=== PATIENT | female | born 1935 | race Caucasian/White ===

== ENCOUNTER 2016-11-01 11:55 | Emergency (ER) | payer OTHER, BC ==
[2016-11-01 12:04] VITALS: BP 166/88; PULSE 70; TEMP 97.9; BMI 29.2
--- NOTE | 2016-11-01 12:08 | PDOC ---
History of Present Illness - General Chief Complaint: Ear Problem Stated Complaint: BLEEDING BEHIND RIGHT EAR Time Seen by Provider: 11/01/16 11:58 History Source: Patient Exam Limitations: No Limitations - History of Present Illness Initial Comments: 11/01/16 12:10 81y F no significant pmhx presents with bleeding behind her R ear. The pt states that about 2 days ago, she notice some bleeding behind her right ear. there is no associated pain, fever/chills. the bleeding is intermittent. the pt does endorse swimming a few times a week, and states she uses a hearing aid behind that ear typically. pt also notes that she has noticed some dry skin around her R ear recently no other rashes, hearing changes, sore throat. Past History - Past Medical History Allergies/Adverse Reactions: Allergies Allergy/AdvReac Type Severity Reaction Status Date / Time Penicillins Allergy Rash Unverified 04/01/15 16:12 Home Medications: Ambulatory Orders Ascorbic Acid [Vitamin C] 500 mg PO DAILY tablet 04/01/15 Gluc HCl/Csa/Collagen/Hyalur A [Glucosamine Chondroitin Cap] 1 each PO DAILY capsule 04/01/15 Vitamin B Complex [Vitamin B-100 Complex] 1 each PO DAILY tablet 04/01/15 Cholecalciferol (Vitamin D3) [Vitamin D3] 1,000 unit PO DAILY capsule 10/01/15 Vitamin E DAILY 10/01/15 Krill/Om3/Dha/Epa/Om6/Lip/Astx [Krill Oil 1,000 Mg Softgel] 1 each PO DAILY capsule 01/16/16 Psyllium Husk [Metamucil] 0.52 gm PO 5 DAILY capsule 04/14/16 Review of Systems - Review of Systems Able to Perform ROS?: Yes Comments:: 11/01/16 12:13 Constitutional - no reported Fever, Chills, weakness, HEENT: +bleeding behind R ear no reported vision changes, sore throat skin - +Dry skin no reported bruising, erythema, rash neurological: no reported headache, numbness, focal weakness, tingling, ataxia, weakness hematologic: no reported anemia, easy bruising, easy bleeding *Physical Exam - Physical Exam Comments: 11/01/16 12:14 GENERAL: The patient is awake, alert, and fully oriented, Nontoxic - in no acute distress. ENT: Normal voice, Moist mucous membranes. dryness around the R auricle, superficial abrasion skin breakdown in the fold of skin behind auricle, no erythema, no discahrge, nontender to palpation, not warm to touch Medical Decision Making - Medical Decision Making 11/01/16 12:15 suspect abrasion/skin breakdown due to dryness + hearing aid use no signs of infection will have pt keep the area clean/ dry and not use her hearing aide in that ear for the next 5 days will have pt fu with dr. pruitt later this week for reevaluation infection sypmtoms were discussed with the patient for which she should return I discussed the physical exam findings, ancillary test results and final diagnoses with the patient. I answered all of the patient's questions. The patient was satisfied with the care received and felt comfortable with the discharge plan and treatment plan. The patient will call their primary care physician within 24 hours to arrange follow-up and will return to the Emergency Department with any new, persistent or worsening symptoms. *DC/Admit/Observation/Transfer Diagnosis at time of Disposition: Ear abrasion Qualifiers: Encounter type: initial encounter Laterality: right Qualified Code(s): S00.411A - Abrasion of right ear, initial encounter - Discharge Dispostion Disposition: HOME Condition at time of disposition: Stable Admit: No - Referrals Referrals: Adalberto Pruitt MD [Primary Care Provider] - - Patient Instructions Printed Discharge Instructions: DI for Abrasion Additional Instructions: keep your ear clean and dry. dab it after showering to keep it dry. avoid using your hearing aide for the next few days to allow the wound to clear. if tehre is pain, redness, swelling, warm to the touch or you have any fever, return for evaluation.
== END 2016-11-01 12:13 | disposition home or self-care (01) ==
LOC: FER 11:55
DX: S00.411A Abrasion of right ear, initial encounter (principal); X58.XXXA Exposure to other specified factors, initial encounter; Y93.9 Activity, unspecified; Y92.9 Unspecified place or not applicable
CPT/HCPCS: 99282-25

== ENCOUNTER 2017-02-06 15:10 | Emergency (ER) | payer OTHER, BC ==
[2017-02-06 15:45] VITALS: BP 152/74; PULSE 70; TEMP 98; BMI 30.1
--- NOTE | 2017-02-06 17:00 | PDOC ---
History of Present Illness <Heidy Delatorre - Last Filed: 02/06/17 16:55> - General History Source: Patient Exam Limitations: No Limitations - History of Present Illness Initial Comments: 02/06/17 17:02 The patient is a 81 year old female with a history of bilateral hearing aids who presents to the ED s/p foreign body in her ear. The patient reports she lost her right hearing aid in her right ear. Patient denies right ear pain and does not feel anything in her right ear. Denies ear discharge. Denies any other symptoms. <Kvng Callahan - Last Filed: 02/06/17 17:03> - General Chief Complaint: Foreign Body (FB) Stated Complaint: HEARING AID PART IN RIGHT EAR Time Seen by Provider: 02/06/17 16:02 Past History - Psycho/Social/Smoking Cessation Hx Anxiety: No Suicidal Ideation: No Smoking History: Never smoked Hx Alcohol Use: No Drug/Substance Use Hx: No Substance Use Type: None <Heidy Delatorre - Last Filed: 02/06/17 16:55> <Kvng Callahan - Last Filed: 02/06/17 17:03> - Past Medical History Allergies/Adverse Reactions: Allergies Allergy/AdvReac Type Severity Reaction Status Date / Time Penicillins Allergy Rash Unverified 04/01/15 16:12 Home Medications: Ambulatory Orders Ascorbic Acid [Vitamin C] 500 mg PO DAILY tablet 04/01/15 Gluc HCl/Csa/Collagen/Hyalur A [Glucosamine Chondroitin Cap] 1 each PO DAILY capsule 04/01/15 Vitamin B Complex [Vitamin B-100 Complex] 1 each PO DAILY tablet 04/01/15 Cholecalciferol (Vitamin D3) [Vitamin D3] 1,000 unit PO DAILY capsule 10/01/15 Vitamin E DAILY 10/01/15 Krill/Om3/Dha/Epa/Om6/Lip/Astx [Krill Oil 1,000 Mg Softgel] 1 each PO DAILY capsule 01/16/16 Psyllium Husk [Metamucil] 0.52 gm PO 5 DAILY capsule 04/14/16 Review of Systems - Review of Systems Able to Perform ROS?: Yes Comments:: 02/06/17 17:02 GENERAL/CONSTITUTIONAL: No fever or chills. No weakness. HEAD, EYES, EARS, NOSE AND THROAT:+ foreign body in right ear. No change in vision. No ear pain or discharge. No sore throat. CARDIOVASCULAR: No chest pain or shortness of breath. RESPIRATORY: No cough, wheezing, or hemoptysis. GASTROINTESTINAL: No nausea, vomiting, diarrhea or constipation. GENITOURINARY: No dysuria, frequency, or change in urination. MUSCULOSKELETAL: No joint or muscle swelling or pain. No neck or back pain. SKIN: No rash NEUROLOGIC: No headache, vertigo, loss of consciousness, or change in strength/ sensation. ENDOCRINE: No increased thirst. No abnormal weight change. HEMATOLOGIC/LYMPHATIC: No anemia, easy bleeding, or history of blood clots. ALLERGIC/IMMUNOLOGIC: No hives or skin allergy. <Kvng Callahan - Last Filed: 02/06/17 17:03> *Physical Exam - Vital Signs Last Vital Signs Temp Pulse Resp BP Pulse Ox 98.0 F 70 16 152/74 98 02/06/17 15:40 02/06/17 15:40 02/06/17 15:40 02/06/17 15:40 02/06/17 15:40 <Heidy Delatorre - Last Filed: 02/06/17 16:55> - Vital Signs Last Vital Signs Temp Pulse Resp BP Pulse Ox 98.0 F 70 16 152/74 98 02/06/17 15:40 02/06/17 15:40 02/06/17 15:40 02/06/17 15:40 02/06/17 15:40 - Physical Exam Comments: 02/06/17 17:03 GENERAL: Awake, alert, and fully oriented, in no acute distress HEAD: No signs of trauma EYES: PERRLA, EOMI, sclera anicteric, conjunctiva clear ENT:+ Right TM is occluded by wax. Auricles normal inspection, hearing grossly normal, nares patent, oropharynx clear without exudates. Moist mucosa NECK: Normal ROM, supple, no lymphadenopathy, JVD, or masses LUNGS: Breath sounds equal, clear to auscultation bilaterally. No wheezes, and no crackles HEART: Regular rate and rhythm, normal S1 and S2, no murmurs, rubs or gallops ABDOMEN: Soft, nontender, normoactive bowel sounds. No guarding, no rebound. No masses EXTREMITIES: Normal range of motion, no edema. No clubbing or cyanosis. No cords, erythema, or tenderness NEUROLOGICAL: Normal speech SKIN: Warm, Dry, normal turgor, no rashes or lesions noted. <Kvng Callahan - Last Filed: 02/06/17 17:03> Medical Decision Making - Medical Decision Making 02/06/17 16:55 81 yo F with h/o no pmhx here wth c/o right ear foreign body. pt thought she had a piece of hearing aid stuck in her ear. now wearing her hearing aid on the left side. no f/c no other complaints. on exam pt with large wax bolus on right ear. canal no erythema. plan irrigate right ear wtih hydrogen peroxide and irrigation. pt unable to tolerate extraction. will dc with cerumenex ear drops. fu ENT <Heidy Delatorre - Last Filed: 02/06/17 16:55> *DC/Admit/Observation/Transfer - Discharge Dispostion Admit: No <Heidy Delatorre - Last Filed: 02/06/17 16:55> - Attestations Scribe Attestion: 02/06/17 17:03 Documentation prepared by Kvng Callahan, acting as medical biller coder for Heidy Delatorre MD <Kvng Callahan - Last Filed: 02/06/17 17:03> Diagnosis at time of Disposition: Excessive cerumen in right ear canal - Discharge Dispostion Condition at time of disposition: Good - Referrals Referrals: Adalberto Pruitt MD [Primary Care Provider] - Chirag Foster MD [Staff Physician] - - Patient Instructions Printed Discharge Instructions: Cerumen Impaction Additional Instructions: use cerumenx ear drops in right ear daily to help soften wax. follow up with ENT doctor, Dr. Cristian vasquez. call to schedule. return for any problems or concerns.
== END 2017-02-06 17:04 | disposition home or self-care (01) ==
LOC: FER 15:10
DX: H61.21 Impacted cerumen, right ear (principal)
CPT/HCPCS: 99281-25

== ENCOUNTER 2018-01-08 19:17 | Emergency (ER) | payer OTHER, BC ==
[2018-01-08 19:34] VITALS: BP 138/70; PULSE 76; TEMP 97.5
--- NOTE | 2018-01-08 21:03 | PDOC ---
History of Present Illness - General History Source: Patient Exam Limitations: No Limitations - History of Present Illness Initial Comments: 01/08/18 21:10 The patient is an 82 year old female with history of dementia who presents to the ED complaining of left calf pain that began this evening. The patient reports she was walking in her garden today when she "twisted" her left calf at the onset of her pain. She denies any fall or head trauma. She now complains of left calf pain that is worse with walking and bearing weight. The patient denies numbness or tingling. She denies peripheral edema. She denies chest pain or shortness of breath. She denies history of PE or DVT. <Latosha Dotson - Last Filed: 01/08/18 21:10> <Jeanie Flores - Last Filed: 01/09/18 01:20> - General Chief Complaint: Pain, Acute Stated Complaint: LEFT CALF PAIN Time Seen by Provider: 01/08/18 19:21 Past History <Latosha Dotson - Last Filed: 01/08/18 21:10> - Past Medical History COPD: No Dementia: Yes Psychiatric Problems: Yes - Suicide/Smoking/Psychosocial Hx Smoking History: Never smoked Hx Alcohol Use: No Drug/Substance Use Hx: No Substance Use Type: None <Jeanie Flores - Last Filed: 01/09/18 01:20> - Past Medical History Allergies/Adverse Reactions: Allergies Allergy/AdvReac Type Severity Reaction Status Date / Time Penicillins Allergy Rash Verified 01/08/18 19:21 Home Medications: Ambulatory Orders Rivastigmine Tartrate [Rivastigmine] 1.5 mg PO BID capsule 04/22/17 Pravastatin Sodium [Pravachol (Nf)] 20 mg PO DAILY 01/08/18 Sertraline HCl [Zoloft -] 50 mg PO HS 01/08/18 Review of Systems - Review of Systems Able to Perform ROS?: Yes Comments:: 01/08/18 21:15 Review of systems is as per HPI and otherwise negative. <Latosha Dotson - Last Filed: 01/08/18 21:10> *Physical Exam - Vital Signs Last Vital Signs Temp Pulse Resp BP Pulse Ox 97.5 F L 76 16 138/70 99 01/08/18 19:18 01/08/18 19:18 01/08/18 19:18 01/08/18 19:18 01/08/18 19:18 - Physical Exam Comments: 01/08/18 21:15 GENERAL: Awake, alert, and fully oriented, in no acute distress HEAD: No signs of trauma EYES: PERRLA, EOMI, sclera anicteric, conjunctiva clear ENT: Auricles normal inspection, hearing grossly normal, nares patent, oropharynx clear without exudates. Moist mucosa NECK: Normal ROM, supple, no lymphadenopathy, JVD, or masses LUNGS: Breath sounds equal, clear to auscultation bilaterally. No wheezes, and no crackles HEART: Regular rate and rhythm, normal S1 and S2, no murmurs, rubs or gallops ABDOMEN: Soft, nontender, normoactive bowel sounds. No guarding, no rebound. No masses EXTREMITIES: LLE: Tenderness to palpation of the posterior lower leg including the gastrocnemius muscle region, no stepoffs palpated in the Achilles' tendon area of insertion. Dorsiflexion and plantarflexion intact, but there is pain with active and passive ROM. Pulses are intact distally. CR < 2s. All other extremities: Normal range of motion, no edema. No clubbing or cyanosis. No cords, erythema, or tenderness NEUROLOGICAL: Cranial nerves II through XII grossly intact. Normal speech, gait deferred. SKIN: Warm, Dry, normal turgor, no rashes or lesions noted. <Latosha Dotson - Last Filed: 01/08/18 21:10> - Vital Signs Last Vital Signs Temp Pulse Resp BP Pulse Ox 97.5 F L 76 16 138/70 99 01/08/18 19:18 01/08/18 19:18 01/08/18 19:18 01/08/18 19:18 01/08/18 19:18 <Jeanie Flores - Last Filed: 01/09/18 01:20> Medical Decision Making - Medical Decision Making Documentation has been prepared under my direction and personally reviewed by me in its entirety. I attest that this documented accurately reflects all work, treatment, procedures and medical decision making performed by me. As noted above, this 82-year-old woman with a history of dementia presents with left lower leg pain that began suddenly as she was taking a walk in the garden. She describes walking and "twisting her leg"; she cannot describe the event more precisely. She may have been walking down a step in the garden according to her , although he did not witness the event. The patient denies falling or impacting any area of her body. Since then, she has had pain with dorsiflexion/plantar flexion of her foot. No previous history of this type of pain in either leg. No history of previous thromboembolic events. Exam as noted Left leg Doppler duplex ultrasound study performed to evaluate for DVT: No evidence of DVT. Patient's history and exam most consistent with Achilles tendinopathy/ tendinitis. No evidence for complete rupture of the Achilles tendon. Left lower leg wrapped using James wrap. Patient and her advised to ice and elevate left leg is much as possible. Her has used Dr. Vargas in the past and referral information was given to them for follow-up within the next few days. Patient uses nonsteroidal anti-inflammatory medications as needed. Toradol 30 mg IM administered; she can continue ibuprofen/naproxen/acetaminophen as needed for pain. <Jeanie Flores - Last Filed: 01/09/18 01:20> *DC/Admit/Observation/Transfer <Latosha Dotson - Last Filed: 01/08/18 21:10> <Jeanie Flores - Last Filed: 01/09/18 01:20> Diagnosis at time of Disposition: Achilles tendinitis of left lower extremity - Discharge Dispostion Disposition: HOME Condition at time of disposition: Stable - Referrals Referrals: Adalberto Pruitt MD [Primary Care Provider] - Twin Rowley MD [Staff Physician] - Call tomorrow - Patient Instructions Printed Discharge Instructions: DI for Achilles Tendinopathy Additional Instructions: Ice to left lower leg/elevation until seen by orthopedist James wrap during the day (remove at night) Ibuprofen 600 mg up to 3 times a day (take with food) Follow-up with Dr. [facility] within the next 2-3 days( call office tomorrow) - Post Discharge Activity
[2018-01-08] MEDS ORDERED: KETOROLAC TROMETHAMINE 60 MG/2 ML VIAL IM ONE ×2 (23:24→23:26)
[2018-01-08] MEDS ORDERED: KETOROLAC TROMETHAMINE 30 MG/1 ML VIAL ONE (23:26)
== END 2018-01-08 23:38 | disposition home or self-care (01) ==
LOC: FER 19:17
PROC: 3E0233Z Introduction of Anti-inflammatory into Muscle, Percutaneous Approach (ICD-10-PCS; principal; 2018-01-08)
DX: M76.62 Achilles tendinitis, left leg (principal); F03.90 Unspecified dementia, unspecified severity, without behavioral disturbance, psychotic disturbance, mood disturbance, and anxiety; Z88.0 Allergy status to penicillin
CPT/HCPCS: 93971-TC; 99282-25

== ENCOUNTER 2018-04-13 16:19 | Emergency (ER) | payer OTHER, BC ==
[2018-04-13 16:58] VITALS: BP 112/66; PULSE 86; TEMP 98.1
[2018-04-13] MEDS ORDERED: ACETAMINOPHEN 325 MG TABLET (FP) PO ONE (17:11)
--- NOTE | 2018-04-13 17:11 | PDOC ---
History of Present Illness - General Stated Complaint: RT LEG PAIN Time Seen by Provider: 04/13/18 16:51 History Source: Family Exam Limitations: Dementia - History of Present Illness Initial Comments: 04/13/18 17:07 Patient is an 82F with history of HLD and cognitive impairment here today complaining of pain to her right knee that started while awakening this morning. Patient is alert and oriented, but is confused and often answers questions inappropriately. Her denies trauma, and states that she was in her usual state of health yesterday. She walked without issue today. Her brought her to the ED because she was not able to walk anywhere. Patient denies having pain anywhere else. Denies difficulty breathing. Past History - Past Medical History Allergies/Adverse Reactions: Allergies Allergy/AdvReac Type Severity Reaction Status Date / Time Penicillins Allergy Rash Verified 01/08/18 19:21 Home Medications: Ambulatory Orders Rivastigmine Tartrate [Rivastigmine] 1.5 mg PO BID capsule 04/22/17 Pravastatin Sodium [Pravachol (Nf)] 20 mg PO DAILY 01/08/18 Sertraline HCl [Zoloft -] 50 mg PO HS 01/08/18 Dextromethorphan HBr/Quinidine [Nuedexta 20-10 mg Capsule] 1 each PO BID COPD: No Dementia: Yes Psychiatric Problems: Yes - Suicide/Smoking/Psychosocial Hx Smoking History: Never smoked Hx Alcohol Use: No Drug/Substance Use Hx: No Substance Use Type: None Review of Systems - Review of Systems Able to Perform ROS?: No (2/2 clinical condition) *Physical Exam - Vital Signs Last Vital Signs Temp Pulse Resp BP Pulse Ox 98.1 F 86 18 112/66 98 04/13/18 16:59 04/13/18 16:59 04/13/18 16:59 04/13/18 16:59 04/13/18 16:59 - Physical Exam Comments: 04/13/18 17:09 GENERAL: Awake, alert, and fully oriented, in no acute distress R KNEE: Some pain with palpation on lateral R knee, inconsistent reports of pain , full ROM without crepitus, no erythema, no signs of infection. HEAD: No signs of trauma, normocephalic, atraumatic EYES: PERRLA, EOMI, sclera anicteric, conjunctiva clear ENT: Auricles normal inspection, hearing grossly normal, nares patent, oropharynx clear without exudates. Moist mucosa NECK: Normal ROM, supple, no lymphadenopathy, JVD, or masses LUNGS: No distress, speaks full sentences, clear to auscultation bilaterally HEART: Regular rate and rhythm, normal S1 and S2, no murmurs, rubs or gallops, peripheral pulses normal and equal bilaterally. ABDOMEN: Soft, nontender, normoactive bowel sounds. No guarding, no rebound. No masses EXTREMITIES: Normal inspection, Normal range of motion, no edema. No clubbing or cyanosis. NEUROLOGICAL: Cranial nerves II through XII grossly intact. Normal speech, no focal sensorimotor deficits SKIN: Warm, Dry, normal turgor, no rashes or lesions noted. ED Treatment Course - LABORATORY CBC & Chemistry Diagram: 04/13/18 17:25 04/13/18 17:25 - RADIOLOGY Radiology Studies Ordered: Category Date Time Status HIP & PELVIS-RIGHT [RAD] Stat Radiology 04/13/18 17:01 Ordered KNEE 3 POS-RIGHT [RAD] Stat Radiology 04/13/18 17:01 Ordered Medical Decision Making - Medical Decision Making 04/13/18 17:10 Patient is an 82F with history of HLD and dementia with cognitive impairment here today with R knee pain. Vital signs normal and stable. No obvious defects seen on exam. Will x-ray for possible fracture of hip and knee. 04/13/18 19:10 X-ray shows no fracture. 04/13/18 19:58 Patient walking with steady gait. Patient's family does not want to wait for urine. Will follow up with their PCP Dr Pruitt tomorrow. *DC/Admit/Observation/Transfer Diagnosis at time of Disposition: Knee pain - Discharge Dispostion Disposition: HOME Condition at time of disposition: Good Decision to Admit order: No - Referrals Referrals: Adalberto Pruitt MD [Primary Care Provider] - - Patient Instructions Printed Discharge Instructions: DI for Knee Pain Additional Instructions: Please return to the ED if you have any new, worsening or concerning symptoms. Please follow up with your primary care physician tomorrow. - Post Discharge Activity
--- NOTE | 2018-04-13 17:18 | PDOC ---
Attending Attestation - HPI HPI: 04/13/18 17:57 The patient is a 82 year old female, accompanied by , with a significant PMH of dementia, hyperlipidemia, cognitive impairment, who presents to the emergency department with posterior right knee pain beginning this morning. As per present at beside, he denies any recent injuries or trauma. He states that beginning this morning he had to wake the patient from sleep and notes she was behaving more giddy and delusional than baseline. He reports the patient was in her usual state of health yesterday. He states he brought the patient to the ED today secondary to the complaint of right knee pain and difficulty ambulating. She denies any shortness of breath. Allergies: Penicillins - Physicial Exam PE: 04/13/18 20:00 GENERAL: +Pleasantly demented. A&O x 1, in no acute distress HEAD: No signs of trauma EYES: PERRLA, EOMI, sclera anicteric, conjunctiva clear ENT: Auricles normal inspection, hearing grossly normal, nares patent, oropharynx clear without exudates. Moist mucosa NECK: Normal ROM, supple, no lymphadenopathy, JVD, or masses LUNGS: Breath sounds equal, clear to auscultation bilaterally. No wheezes, and no crackles HEART: Regular rate and rhythm, normal S1 and S2, no murmurs, rubs or gallops ABDOMEN: Soft, nontender, normoactive bowel sounds. No guarding, no rebound. No masses EXTREMITIES: +Tenderness posterior popliteal region of the right knee. Able to range knee. No hip tenderness. Sensation intact and pedal pulses intact. No calf pain or swelling. Normal range of motion, no edema. No clubbing or cyanosis. No cords, erythema. NEUROLOGICAL: Cranial nerves II through XII grossly intact. Normal speech. SKIN: Warm, Dry, normal turgor, no rashes or lesions noted. <Yosi Benton - Last Filed: 04/13/18 19:59> - Resident Resident Name: Sreekanth Mccormick - ED Attending Attestation I have performed the following: I have examined & evaluated the patient, The case was reviewed & discussed with the resident, I agree w/resident's findings & plan, Exceptions are as noted - Medical Decision Making 04/13/18 17:13 I, Dr. Nataliya Lebron, DO, attest that this document has been prepared under my direction and personally reviewed by me in its entirety. I further attest, that it accurately reflects all work, treatment, procedures and medical decision -making performed by me. 04/13/18 17:19 a/p: 82yo female presents with her via ambulance from home for eval of increasing delusions and giddiness -hx of dementia -today with R leg pain and R posterior knee pain -pulses intact, sensation intact -pt is aaox1 - person - states still with increased delusions over last 3 days -will send labs, ua, xray pelvis/knee, duplex ultrasound R leg -discussed plan with the patient and the who agree with the plan 04/13/18 19:01 arthritic changes on xray of the medial aspect of the knee negative for dvt on ultrasound 04/13/18 20:06 pt ambulated with the resident requesting to take the patient home that he will follow up with his PMD for a urine test pt feeling better <Nataliya Lebron - Last Filed: 04/13/18 20:07> Attestations - Attestations 04/13/18 17:58 Documentation prepared by Yosi Benton, acting as medical record retrieval specialist for Nataliya Lebron DO. <Yosi Benton - Last Filed: 04/13/18 19:59>
[2018-04-13 17:40] VITALS: BMI 27.4
[2018-04-13 18:00] LABS: BASO % 0.4 % (0-2.0); EOS % 0.3 % (0-4.5); HEMATOCRIT 40.9 % (32.4-45.2); HEMOGLOBIN 13.7 GM/dL (10.7-15.3); LYMPH % 12.7 % (8-40); MCH 30.4 pg (25.7-33.7); MCHC 33.5 g/dl (32.0-36.0); MEAN CELL VOLUME 90.8 fl (80-96); MONO % 10.5 % (3.8-10.2); NEUT % 76.1 % (42.8-82.8); PLATELET COUNT 288 K/MM3 (134-434); RDW 13.3 % (11.6-15.6); WHITE BLOOD COUNT 15.5 K/mm3 (4.0-10.0)
[2018-04-13 18:28] LABS: ANION GAP 10 (8-16); BILIRUBIN,TOTAL 0.4 mg/dL (0.2-1.0); BLOOD UREA NITROGEN 28 mg/dL (7-18); CALCIUM 9.3 mg/dL (8.5-10.1); CHLORIDE 106 mmol/L (98-107); CO2 26 mmol/L (21-32); CREATININE 1.1 mg/dL (0.55-1.02); GLUCOSE,RANDOM 132 mg/dL (74-106); POTASSIUM 4.7 mmol/L (3.5-5.1); SGOT/AST 25 U/L (15-37); SGPT/ALT 42 U/L (12-78); SODIUM 142 mmol/L (136-145)
[2018-04-13 18:30] LABS: ALK PHOS 99 U/L (45-117); TOT PROT 6.9 g/dl (6.4-8.2)
== END 2018-04-13 20:24 | disposition home or self-care (01) ==
LOC: JER 16:19
DX: M25.561 Pain in right knee (principal); F03.90 Unspecified dementia, unspecified severity, without behavioral disturbance, psychotic disturbance, mood disturbance, and anxiety; E78.5 Hyperlipidemia, unspecified; G31.84 Mild cognitive impairment of uncertain or unknown etiology; Z88.0 Allergy status to penicillin
CPT/HCPCS: 36415; 73523-TC-FY; 73562-TC-RT-FY; 80053; 85025; 93971-TC; 99283-25

== ENCOUNTER 2019-10-24 13:44 | Emergency (ER) | payer OTHER, BC ==
--- NOTE | 2019-10-24 13:53 | PDOC ---
History of Present Illness - General Chief Complaint: Injury Stated Complaint: RIGHT WRIST INJURY History Source: Patient Exam Limitations: No Limitations - History of Present Illness Initial Comments: 10/24/19 14:41 84 yo F with a hx of dementia and HLD presents to the emergency department with right wrist pain beginning today. Per the patient, she is unable to recollect the events leading to the episode. Per the family members, she was complaining of pain on the right wrist after using the portable toilet unit. Per the family , she is unable to arise from the ground if she were to fall and they did not find her on the ground. The patient has dementia thus limiting the history taking. Per the family, she was protective of her right wrist and stating it was hurting. Allergies: PCN Past History - Past Medical History Allergies/Adverse Reactions: Allergies Allergy/AdvReac Type Severity Reaction Status Date / Time Penicillins Allergy Rash Verified 10/24/19 13:49 Home Medications: Ambulatory Orders Rivastigmine Tartrate [Rivastigmine] 1.5 mg PO BID capsule 04/22/17 Pravastatin Sodium [Pravachol (Nf)] 20 mg PO DAILY 01/08/18 Sertraline HCl [Zoloft -] 50 mg PO HS 01/08/18 Dextromethorphan HBr/Quinidine [Nuedexta 20-10 mg Capsule] 1 each PO BID COPD: No Dementia: Yes Psychiatric Problems: Yes - Psycho Social/Smoking Cessation Hx Smoking History: Never smoked Hx Alcohol Use: No Drug/Substance Use Hx: No Substance Use Type: None Review of Systems - Review of Systems Able to Perform ROS?: No (dementia) *Physical Exam - Physical Exam General Appearance: Yes: Nourished, Appropriately Dressed. No: Apparent Distress, Intoxicated HEENT: positive: EOMI, OLGA, Normal Voice, Pharynx Normal, Hearing Grossly Normal. negative: Pale Conjunctivae, Scleral Icterus (R), Scleral Icterus (L), Muffled/Hoarse voice, Pharyngeal Erythema, Tonsillar Exudate, Tonsillar Erythema , Excessive drooling Neck: positive: Trachea midline, Supple. negative: Tender, Lymphadenopathy (R) , Lymphadenopathy (L) Respiratory/Chest: positive: Lungs Clear, Normal Breath Sounds. negative: Chest Tender, Respiratory Distress, Accessory Muscle Use Cardiovascular: positive: Regular Rhythm, Regular Rate, S1, S2. negative: Systolic Murmur Gastrointestinal/Abdominal: positive: Normal Bowel Sounds, Flat, Soft. negative : Tender Lymphatic: negative: Adenopathy Musculoskeletal: positive: Normal Inspection. negative: CVA Tenderness, Vertebral Tenderness Extremity: positive: Normal Capillary Refill, Normal Range of Motion, Tender ( over the distal radius), Swelling (right wrist), Other (intact radial pulse. no deficit in sensation. 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 limited right wrist flexion and extension secondary to pain. ). negative: Normal Inspection (right wrist swelling), Erythema Integumentary: positive: Normal Color, Dry, Warm Neurologic: positive: Alert. negative: Fully Oriented (to self; at baseline) Medical Decision Making - Medical Decision Making 10/24/19 14:55 84 yo F with a hx of dementia and HLD presents to the emergency department with right wrist pain beginning today. Initial vitals: Initial Vital Signs Temp Pulse Resp BP Pulse Ox 98.5 F 95 H 18 146/75 99 10/24/19 13:44 10/24/19 13:44 10/24/19 13:44 10/24/19 13:44 10/24/19 13:44 Work up: right wrist pain with swelling. will obtain wrist xray to rule out fracture/ dislocation xray was negative for fracture. patient was placed in an jen bandage and advised to follow up with primary medical doctor within 1 week after discharge. Dispo: Discharge Discharge - Discharge Information Problems reviewed: Yes Clinical Impression/Diagnosis: Right wrist sprain Condition: Stable Disposition: HOME - Admission No - Follow up/Referral Referrals: Adalberto Pruitt MD [Staff Physician] - - Patient Discharge Instructions Patient Printed Discharge Instructions: Wrist Sprain, DI for Wrist Sprain Additional Instructions: You were seen in the emergency department for your wrist sprain. Please follow up with your primary medical doctor within 1 week after discharge for follow up care and management. Please use tylenol as directed on the label for pain control. Use the jen bandage for support and ice on 20 minutes at a time with a protective barrier between the ice and skin. Please return to the emergency department if you have worsening pain or new concerning symptoms. Thank you. - Post Discharge Activity
[2019-10-24 14:03] VITALS: BP 146/75; PULSE 95; TEMP 98.5; BMI 68.1
--- NOTE | 2019-10-24 15:10 | PDOC ---
Attending Attestation - Resident Resident Name: Domingo Vivar - ED Attending Attestation I have performed the following: I have examined & evaluated the patient, The case was reviewed & discussed with the resident, I agree w/resident's findings & plan, Exceptions are as noted - HPI HPI: 10/24/19 15:08 Dementia, uncertain injury, swelling of the right wrist. According to family, does not appear to be in pain - Physicial Exam PE: 10/24/19 15:08 Physical exam reveals normal vital signs and no sign of injury, including injury to the head neck chest abdomen spine pelvis or extremities other than mild swelling of the right wrist, distal radius. There is no deformity, erythema, warmth, or point tenderness on exam. There is no snuffbox tenderness. Pulses are full. No distal sensory or motor deficits. No limited range of motion of the digits in flexion or extension. X-ray: Negative - Medical Decision Making 10/24/19 15:09 Assessment: Mild sprain of the right wrist, no sign of fracture Plan: James ice Tylenol and rest. Follow-up 1 week if no improvement orthopedist for further evaluation treatment. Fully ambulatory in no pain or other distress at discharge with family
== END 2019-10-24 14:45 | disposition home or self-care (01) ==
LOC: FER 13:44
DX: S63.501A Unspecified sprain of right wrist, initial encounter (principal); X58.XXXA Exposure to other specified factors, initial encounter; Y93.89 Activity, other specified; Y92.89 Other specified places as the place of occurrence of the external cause; Z88.0 Allergy status to penicillin; F03.90 Unspecified dementia, unspecified severity, without behavioral disturbance, psychotic disturbance, mood disturbance, and anxiety; F99 Mental disorder, not otherwise specified; E78.5 Hyperlipidemia, unspecified
CPT/HCPCS: 73110-TC-RT-FY; 99283-25

== ENCOUNTER 2021-04-09 14:04 | Emergency (ER) | payer OTHER, BC ==
[2021-04-09 14:41] VITALS: BP 132/59; PULSE 97; TEMP 98.9; BMI 30.9
== END 2021-04-09 15:17 | disposition home or self-care (01) ==
LOC: FER 14:04
DX: Z03.821 Encounter for observation for suspected ingested foreign body ruled out (principal)
CPT/HCPCS: 71046-TC-FY; 74018-TC-FY; 99284-25

== ENCOUNTER 2022-02-21 10:54 | Inpatient (IN) | payer OTHER, BC ==
[2022-02-21] MEDS ORDERED: CEFTRIAXONE 1 GM in DEXTROSE 5%-WATER - 50 ML IVPB ONE (11:57)
[2022-02-21 12:00] LABS: EPITHELIAL CELLS MODERATE /hpf
[2022-02-21] MEDS ORDERED: cefTRIAXone SODIUM 1 GM VIAL ONE (12:00)
[2022-02-21 12:03] LABS: HEMATOCRIT 37.6 % (32.4-45.2); MCH 30.7 pg (25.7-33.7); MCHC 34.5 g/dl (32.0-36.0); MEAN PLT VOLUME 8.5 fl (7.5-11.1); PLATELET COUNT 341.2 10^3/uL (134-434); RBC 4.23 10^6/uL (3.60-5.2); RDW 14.1 % (11.6-15.6); WHITE BLOOD COUNT 10.2 10^3/uL (4.0-10.8)
[2022-02-21 12:03] LABS: AMORP URATES 1+ /hpf (NONE SEEN)
[2022-02-21 12:05] LABS: INR 1.02 (0.83-1.09); PROTHROMBIN TIME (PATIENT) 11.7 SEC (9.7-13.0)
[2022-02-21 12:07] LABS: ACTIVATED PTT 33.7 SECONDS (25.2-36.5)
[2022-02-21 12:17] LABS: PLATELET ESTIMATE ADEQUATE
[2022-02-21 12:24] LABS: ALBUMIN 3.5 g/dl (3.4-5.0); BILIRUBIN,TOTAL 0.6 mg/dl (0.2-1); CALCIUM 9.5 mg/dl (8.5-10); CREATININE 0.8 mg/dl (0.55-1.3); TOT PROT 5.7 g/dl (6.4-8.2)
[2022-02-21] MEDS ORDERED: SODIUM CHLORIDE 1,000 ML IV SCH (13:45)
[2022-02-21] MEDS ORDERED: ACETAMINOPHEN 325 MG TABLET (FP) PO PRN (14:10)
[2022-02-21 16:49] VITALS: BMI 23.6
[2022-02-22 08:58] LABS: CALCIUM 8.8 mg/dl (8.5-10); CREATININE 0.9 mg/dl (0.55-1.3)
[2022-02-22 08:59] LABS: HEMATOCRIT 36.2 % (32.4-45.2); HEMOGLOBIN 12.7 G/dL (10.7-15.3); MCH 31.1 pg (25.7-33.7); MEAN CELL VOLUME 88.9 fl (80-96); MEAN PLT VOLUME 8.9 fl (7.5-11.1); PLATELET COUNT 303.9 10^3/uL (134-434); RBC 4.07 10^6/uL (3.60-5.2); RDW 14.1 % (11.6-15.6)
[2022-02-22] MEDS ORDERED: DEXTROSE 5%-WATER - 50 ML IVPB ONE (09:20)
[2022-02-22] MEDS ORDERED: cefTRIAXone SODIUM 1 GM VIAL ONE (09:20)
[2022-02-22] MEDS: LATANOPROST 0.005% OPHTH SOLN 2.5ML BOTTLE OU SCH (09:24)
[2022-02-22 09:37] LABS: HEMATOCRIT 36.1 % (32.4-45.2); HEMOGLOBIN 12.5 G/dL (10.7-15.3); MCH 30.5 pg (25.7-33.7); MCHC 34.5 g/dl (32.0-36.0); MEAN CELL VOLUME 88.5 fl (80-96); MEAN PLT VOLUME 8.3 fl (7.5-11.1); PLATELET COUNT 296.4 10^3/uL (134-434); RBC 4.08 10^6/uL (3.60-5.2); RDW 14.1 % (11.6-15.6); WHITE BLOOD COUNT 11.7 10^3/uL (4.0-10.8)
[2022-02-22 09:45] LABS: BILIRUBIN,TOTAL 0.7 mg/dl (0.2-1); CREATININE 0.8 mg/dl (0.55-1.3); MAGNESIUM 1.9 mg/dL (1.8-2.4); TOT PROT 5.3 g/dl (6.4-8.2)
[2022-02-22] MEDS ORDERED: CEFTRIAXONE 1 GM in DEXTROSE 5%-WATER - 50 ML IVPB ONE (10:00)
[2022-02-22 11:57] LABS: PLATELET ESTIMATE ADEQUATE
[2022-02-22] MEDS: ENOXAPARIN NA (PORCINE) 40 MG/0.4 ML DISP.SYRIN SQ SCH (14:08)
[2022-02-23 08:10] LABS: HEMATOCRIT 33.9 % (32.4-45.2); HEMOGLOBIN 11.6 G/dL (10.7-15.3); MCH 30.2 pg (25.7-33.7); MCHC 34.2 g/dl (32.0-36.0); MEAN CELL VOLUME 88.4 fl (80-96); MEAN PLT VOLUME 8.7 fl (7.5-11.1); PLATELET COUNT 297.3 10^3/uL (134-434); RBC 3.84 10^6/uL (3.60-5.2); RDW 14.1 % (11.6-15.6); WHITE BLOOD COUNT 10.9 10^3/uL (4.0-10.8)
[2022-02-23 08:16] LABS: BILIRUBIN,TOTAL 0.6 mg/dl (0.2-1); CALCIUM 8.8 mg/dl (8.5-10); CREATININE 0.8 mg/dl (0.55-1.3); MAGNESIUM 1.8 mg/dL (1.8-2.4)
[2022-02-23] MEDS ORDERED: DEXTROSE 5%-WATER - 50 ML IVPB ONE (10:13)
[2022-02-23] MEDS ORDERED: cefTRIAXone SODIUM 1 GM VIAL ONE (10:13)
[2022-02-23] MEDS: CEFTRIAXONE 1 GM in DEXTROSE 5%-WATER - 50 ML IVPB SCH (10:28)
[2022-02-23] MEDS: TAMSULOSIN HCL 0.4 MG CAP PO SCH (10:29)
[2022-02-23] MEDS: ENOXAPARIN NA (PORCINE) 40 MG/0.4 ML DISP.SYRIN SQ SCH (10:29)
[2022-02-23 13:14] LABS: PLATELET ESTIMATE ADEQUATE
[2022-02-23] MEDS: BETHANECHOL CHLORIDE 10 MG TABLET PO SCH ×2 (13:20→21:05)
[2022-02-23] MEDS: LATANOPROST 0.005% OPHTH SOLN 2.5ML BOTTLE OU SCH (21:06)
[2022-02-24 08:19] LABS: BILIRUBIN,TOTAL 0.5 mg/dl (0.2-1); CALCIUM 8.9 mg/dl (8.5-10); CREATININE 0.7 mg/dl (0.55-1.3); MAGNESIUM 1.8 mg/dL (1.8-2.4)
[2022-02-24 08:29] LABS: HEMATOCRIT 34.7 % (32.4-45.2); HEMOGLOBIN 12.1 G/dL (10.7-15.3); MCH 30.7 pg (25.7-33.7); MCHC 34.7 g/dl (32.0-36.0); MEAN CELL VOLUME 88.5 fl (80-96); MEAN PLT VOLUME 8.8 fl (7.5-11.1); PLATELET COUNT 318.2 10^3/uL (134-434); RBC 3.92 10^6/uL (3.60-5.2); RDW 14.2 % (11.6-15.6); WHITE BLOOD COUNT 12.2 10^3/uL (4.0-10.8)
[2022-02-24] MEDS: TAMSULOSIN HCL 0.4 MG CAP PO SCH (08:31)
[2022-02-24] MEDS ORDERED: cefTRIAXone SODIUM 1 GM VIAL ONE (09:46)
[2022-02-24] MEDS ORDERED: DEXTROSE 5%-WATER - 50 ML IVPB ONE (09:46)
[2022-02-24] MEDS: BETHANECHOL CHLORIDE 10 MG TABLET PO SCH ×2 (10:05→21:30)
[2022-02-24] MEDS: CEFTRIAXONE 1 GM in DEXTROSE 5%-WATER - 50 ML IVPB SCH (10:06)
[2022-02-24] MEDS: LATANOPROST 0.005% OPHTH SOLN 2.5ML BOTTLE OU SCH ×3 (20:10→21:34)
[2022-02-25] MEDS: TAMSULOSIN HCL 0.4 MG CAP PO SCH (08:23)
[2022-02-25] MEDS ORDERED: DEXTROSE 5%-WATER - 50 ML IVPB ONE (09:55)
[2022-02-25] MEDS ORDERED: cefTRIAXone SODIUM 1 GM VIAL ONE (09:55)
[2022-02-25] MEDS: CEFTRIAXONE 1 GM in DEXTROSE 5%-WATER - 50 ML IVPB SCH (10:18)
[2022-02-25] MEDS: BETHANECHOL CHLORIDE 10 MG TABLET PO SCH ×2 (10:19→21:08)
[2022-02-25 12:15] LABS: ALBUMIN 2.9 g/dl (3.4-5.0); BILIRUBIN,TOTAL 0.3 mg/dl (0.2-1); CALCIUM 8.8 mg/dl (8.5-10); CREATININE 0.7 mg/dl (0.55-1.3); MAGNESIUM 1.8 mg/dL (1.8-2.4); TOT PROT 5.1 g/dl (6.4-8.2)
[2022-02-25 12:35] LABS: HEMATOCRIT 32.8 % (32.4-45.2); HEMOGLOBIN 11.6 G/dL (10.7-15.3); MCH 31.2 pg (25.7-33.7); MCHC 35.4 g/dl (32.0-36.0); MEAN CELL VOLUME 88.2 fl (80-96); MEAN PLT VOLUME 8.8 fl (7.5-11.1); PLATELET COUNT 307.7 10^3/uL (134-434); RBC 3.72 10^6/uL (3.60-5.2); RDW 13.6 % (11.6-15.6); WHITE BLOOD COUNT 11.3 10^3/uL (4.0-10.8)
[2022-02-25 13:51] LABS: PLATELET ESTIMATE ADEQUATE
[2022-02-25] MEDS: LATANOPROST 0.005% OPHTH SOLN 2.5ML BOTTLE OU SCH (21:09)
[2022-02-26] MEDS: TAMSULOSIN HCL 0.4 MG CAP PO SCH (08:07)
[2022-02-26 08:45] LABS: HEMATOCRIT 32.6 % (32.4-45.2); HEMOGLOBIN 11.3 G/dL (10.7-15.3); MCH 30.6 pg (25.7-33.7); MCHC 34.8 g/dl (32.0-36.0); MEAN CELL VOLUME 88.1 fl (80-96); MEAN PLT VOLUME 8.8 fl (7.5-11.1); RDW 14.2 % (11.6-15.6); WHITE BLOOD COUNT 13.2 10^3/uL (4.0-10.8)
[2022-02-26] MEDS ORDERED: cefTRIAXone SODIUM 1 GM VIAL ONE (10:34)
[2022-02-26] MEDS ORDERED: DEXTROSE 5%-WATER - 50 ML IVPB ONE (10:35)
[2022-02-26] MEDS: BETHANECHOL CHLORIDE 10 MG TABLET PO SCH (10:42)
[2022-02-26] MEDS: CEFTRIAXONE 1 GM in DEXTROSE 5%-WATER - 50 ML IVPB SCH (10:42)
[2022-02-26 11:02] VITALS: BP 133/57; PULSE 88; TEMP 98
[2022-02-26] MEDS ORDERED: FUROSEMIDE 40 MG/4 ML INJECTABLE VIAL IVPUSH ONE (12:09)
== END 2022-02-26 13:38 | disposition home or self-care (01) | DRG 699 ==
LOC: FER 10:54 → FM/S 12:54
PROVIDERS: ADMIT Internal Medicine; ATTEND Nurse Practitioner Acute Care
DX: N31.9 Neuromuscular dysfunction of bladder, unspecified (principal); N13.6 Pyonephrosis; F03.90 Unspecified dementia, unspecified severity, without behavioral disturbance, psychotic disturbance, mood disturbance, and anxiety; R31.0 Gross hematuria; B96.1 Klebsiella pneumoniae [K. pneumoniae] as the cause of diseases classified elsewhere; R05.9 Cough, unspecified
CPT/HCPCS: 36415; 71045-TC-FY; 76775-TC; 80048; 80053; 81003; 81015; 83735; 85025; 85027; 85610; 85730; 87040; 87086; 87186; 97116-GP; 97162-GP; 99285-25; C9803-CS; U0003; U0005